=== PATIENT | female | born 1965 | race African-American/Black ===

== ENCOUNTER 2020-11-23 12:18 | Observation (INO) ==
[2020-11-23 12:55] LABS: Basophils # 0.1 10*3/uL (0.0-0.2); Basophils % 0.7 % (0.0-0.8); Eosinophils # 0.3 10*3/uL (0.0-0.87); Eosinophils % 3.9 % (0.00-10.9); Hemoglobin 14.6 GM/DL (12.0-16.0); Immature Granulocytes % 0.2 %; Immature Granulocytes Absolute 0.02 #; Lymphocytes % 36.4 % (21.3-54.2); Mean Corpuscular HGB Conc 33.2 GM/DL (32-36); Mean Corpuscular Volume 95.4 FL (87-102); Mean Platelet Volume 10.8 FL (9.6-12.0); Monocytes % 7.5 % (1.7-12.7); Neutrophils % 51.3 % (38.7-73.9); Platelet Count 287 T/CUMM (130-400); Red Blood Count 4.61 MC/CUMM (3.8-5.5); Red Cell Distribution Width 12.5 % (9.3-17.3); White Blood Count 8.1 T/CUMM (4-12)
[2020-11-23] MEDS ORDERED: LABETALOL 20 MG/4 ML SYRINGE IV STA (12:56)
[2020-11-23] MEDS ORDERED: amLODIPine 5 MG TABLET PO STA (12:56)
[2020-11-23 13:14] LABS: Alanine Aminotransferase 39 U/L (13-56); Albumin 3.7 G/DL (3.4-5.0); Alkaline Phosphatase 143 U/L (45-117); Aspartate Amino Transferase 38 U/L (0-37); Blood Urea Nitrogen 18 MG/DL (7-18); Calcium 9.2 MG/DL (8.5-10.1); Carbon Dioxide 29 MMOL/L (21-32); Estimated Glom Filtration Rate 60 ML/MIN; Glucose 90 MG/DL (74-106); Osmolality,Calculated 280.4 MOS/KG (273-304); Potassium 4.1 MMOL/L (3.5-5.1); Sodium 140 MMOL/L (136-145); Total Protein 8.1 G/DL (6.4-8.2)
[2020-11-23 13:21] LABS: Bilirubin,Urine Negative (Negative); Blood, Urine Moderate mg/dL (Negative); Glucose,Urine (UA) Negative (Negative); Ketones,Urine Negative (Negative); Nitrite,Urine Negative (Negative); Protein,Urine Negative; RBC,Urine 3 /HPF (0-4); Squamous Epithelial Cell,Urine Occasional /HPF (0-10); Urine Appearance Slightly Hazy (Clear); Urine Color Straw (Yellow); Urine Specific Gravity 1.009 (1.001-1.035); Urine Urobilinogen < 2.0 EU/DL (0.2-1.0); WBC,Urine <1 /HPF (0-6)
[2020-11-23 14:01] LABS: Barbiturates Screen,Urine Negative (Negative); Benzodiazepines Screen,Urine Negative (Negative); Cannabinoid Screen,Urine Negative (Negative); Opiate Screen,Urine Negative (Negative); Phencyclidine Screen,Urine Negative (Negative)
[2020-11-23] MEDS ORDERED: niCARdipine 25 MG/10 ML VIAL IV ONE ×2 (14:35→14:38)
[2020-11-23] MEDS: niCARdipine INJ 25 MG in SODIUM CHLORIDE 0.9% 240 ML IV PRN ×3 (14:43→20:15)
[2020-11-23 15:09] LABS: Eosinophils 2 % (0-10); Lymphocytes 48 % (20-55); Segmented Neutrophils 46 % (50-85); Total Cells Counted 100
[2020-11-23] MEDS ORDERED: ACETAMINOPHEN 325 MG TABLET PO PRN (15:11)
[2020-11-23] MEDS ORDERED: ONDANSETRON 4 MG/2 ML VIAL IV PRN (15:11)
[2020-11-23] MEDS ORDERED: ALBUTEROL 2.5 MG/3 ML NEB RESP TX PRN (15:11)
[2020-11-23 15:12] LABS: Platelet Estimate Normal
[2020-11-23] MEDS ORDERED: ASPIRIN 325 MG TABLET PO SCH (15:30)
[2020-11-23] MEDS ORDERED: NICOTINE 21 MG/24 HR PATCH TRANSDERM PRN (15:34)
[2020-11-23 15:42] LABS: PT Patient Result 10.4 SECS (9.8-11.9)
[2020-11-23 15:58] LABS: Risk Ratio 4.11; VLDL CHOLESTEROL 22.4 MG/DL
[2020-11-23] MEDS ORDERED: ENOXAPARIN 40 MG/0.4 ML SYRINGE SUBCUT SCH (16:00)
[2020-11-23] MEDS ORDERED: ZALEPLON 5 MG CAPSULE PO PRN (19:13)
[2020-11-23] MEDS ORDERED: niCARdipine INJ 50 MG in SODIUM CHLORIDE 0.9% 480 ML IV PRN (21:27)
[2020-11-24 05:18] LABS: Basophils # 0.1 10*3/uL (0.0-0.2); Basophils % 0.6 % (0.0-0.8); Eosinophils # 0.5 10*3/uL (0.0-0.87); Eosinophils % 5.4 % (0.00-10.9); Hematocrit 40.6 VOL% (35.7-47.0); Hemoglobin 13.5 GM/DL (12.0-16.0); Immature Granulocytes % 0.2 %; Immature Granulocytes Absolute 0.02 #; Lymphocytes % 34.1 % (21.3-54.2); Mean Corpuscular HGB Conc 33.3 GM/DL (32-36); Mean Corpuscular Volume 94.6 FL (87-102); Mean Platelet Volume 10.7 FL (9.6-12.0); Monocytes % 7.4 % (1.7-12.7); Neutrophils % 52.3 % (38.7-73.9); Platelet Count 268 T/CUMM (130-400); Red Blood Count 4.29 MC/CUMM (3.8-5.5); Red Cell Distribution Width 12.4 % (9.3-17.3); White Blood Count 8.9 T/CUMM (4-12)
[2020-11-24 06:03] LABS: Troponin I < 0.015 NG/ML (0.00-0.045)
[2020-11-24 06:09] LABS: Albumin 3.3 G/DL (3.4-5.0); Bilirubin,Total 0.4 MG/DL (0.2-1.0); Calcium 9.2 MG/DL (8.5-10.1); Osmolality,Calculated 279.3 MOS/KG (273-304); Potassium 3.3 MMOL/L (3.5-5.1); Total Protein 7.3 G/DL (6.4-8.2)
[2020-11-24] MEDS ORDERED: amLODIPine 10 MG TABLET PO SCH (09:00)
[2020-11-24] MEDS ORDERED: ATORVASTATIN 40 MG TABLET PO SCH (09:00)
[2020-11-24] MEDS ORDERED: ASPIRIN EC 81 MG TABLET PO SCH (09:00)
[2020-11-24] MEDS ORDERED: CHLORTHALIDONE 25 MG TABLET PO SCH (09:00)
[2020-11-24] MEDS ORDERED: PANTOPRAZOLE 40 MG TABLET PO SCH (09:00)
[2020-11-24 10:11] VITALS: BP 182/85
[2020-11-24] MEDS ORDERED: atenoloL 50 MG TABLET PO SCH (17:10)
[2020-11-30] MEDS ORDERED: cloNIDine 0.3 MG/24 HR PATCH TRANSDERM SCH (17:11)
== END 2020-11-24 11:10 | disposition left against medical advice (07) ==
LOC: N.ED 12:18 → N.EDINP 15:11 → SUATTDRO 15:11 → INTOOBSV 15:11 → N.ICU 16:00
PROVIDERS: ADMIT Student in an Organized Health Care Education/Training Program; ATTEND Internal Medicine